=== PATIENT | female | born 1965 | race African-American/Black ===

== ENCOUNTER 2016-07-17 14:36 | Emergency (ER) | payer MEDICARE, OTHER ==
[~2016-07-17 14:36] MED LIST: ABILIFY PO; ADVIL200 M1; ALBUTEROL17 GM INH; BENADRYL25 MG PO; CALAN SR PO; EPIPEN0.3 MG/0.1; FLUTICASONE PRO15 G1; IMITREX PO; LAMICTAL PO; LINZESS PO; MIRABEGRON; NO MEDICATIONS; PANTOPRAZOLE SO40 MG PO; PREMARIN; RESTASIS OU; TRAZODONE PO; VALTREX PO; [UNRECOGNIZED DRUG - REMARK]
== END 2016-07-17 16:18 | disposition home or self-care (01) ==
LOC: CED 14:36
DX: M79.89 Other specified soft tissue disorders (principal); T38.0X5A Adverse effect of glucocorticoids and synthetic analogues, initial encounter; Z90.49 Acquired absence of other specified parts of digestive tract; Z90.710 Acquired absence of both cervix and uterus; F43.10 Post-traumatic stress disorder, unspecified; Z88.8 Allergy status to other drugs, medicaments and biological substances
CPT/HCPCS: 99282

== ENCOUNTER → 2016-10-20 | Outpatient (CLI) | payer MEDICARE, OTHER ==
--- NOTE | ~2016-10-20 | CR90 ---
[facility] A Service of [facility] RADIOLOGY TEXT RESULTS PATIENT: JOSEPH MCKEON LOCATION: [facility] : 61 UNIT #: [id number] AGE: [address]: BERTO VILLARREAL MD SEX: F ORDER DR: [id number] [facility] [address]. [place], [place] [address] [id number] O MR#: [id number] Acc #: [id number] NAME: JOSEPH MCKEON : 1965 SEX: F STUDY DATE/TIME: 10/20/2016 12:24 UNIT: [facility] ROOM: STUDY DESCRIPTION: CR Elbow 2 View Lt Attending Physician: Berto Villarreal M.D. Referring Physician: Berto Villarreal M.D. Ordering Physician: Berto Villarreal M.D. Primary Care Physician: Berto Villarreal M.D. MEDICAL IMAGING REPORT This report is preliminary unless electronic signature is present EXAM Left elbow 10/20/2016 HISTORY 50-year-old female with left elbow pain for 1 month. COMPARISON STUDIES None. FINDINGS 3 views of the left elbow demonstrate no acute fracture or dislocation. No joint effusion. Soft tissues are unremarkable. IMPRESSION Unremarkable left. Dictated by... Torey Galvez M.D. THIS IS AN ELECTRONICALLY VERIFIED REPORT Torey Galvez M.D. at 10/21/2016 1:51 PM ONI/yamilet TD: 10/20/2016 18:20 JOB #: [id number] MEDICAL IMAGING REPORT Page 1 of 1 COPY
== END | disposition home or self-care (01) ==
LOC: CRAD 12:02
DX: M25.522 Pain in left elbow (principal)
CPT/HCPCS: 73070

== ENCOUNTER → 2016-10-29 | Outpatient (CLI) | payer MEDICARE, OTHER ==
--- NOTE | ~2016-10-29 | CT57 ---
[facility] A Service [facility] RADIOLOGY TEXT RESULTS PATIENT: JOSEPH MCKEON LOCATION: [facility] : 61 UNIT #: [id number] AGE: [address]: Aurea Holguin SEX: F ORDER DR: [id number] [facility]. [place], [place] [address] [id number] O MR#: [id number] Acc #: [id number] NAME: JOSEPH MCKEON : 1965 SEX: F STUDY DATE/TIME: 10/29/2016 13:21 UNIT: [facility] ROOM: STUDY DESCRIPTION: CT Chest Wo Cont Attending Physician: Aurea Holguin A.P.R.N. Referring Physician: Aurea Holguin A.P.R.N. Ordering Physician: Aurea Holguin A.P.R.N. Primary Care Physician: Kristi Goldberg M.D. MEDICAL IMAGING REPORT This report is preliminary unless electronic signature is present EXAM CT chest INDICATIONS Cough. Bronchitis for 1 year. Reaction to the allergy shots. TECHNIQUE CT of the chest without contrast. Coronal and sagittal reconstructions were obtained. The CT exam was performed with one or more of the following radiation dose reduction techniques: automatic exposure control, adjustment of mA and/or kV according to patient size, and iterative reconstruction. COMPARISON Chest radiograph dated 01/26/2016. FINDINGS There is no suspicious pulmonary findings. No focal consolidation. Central airways are patent. No pathologically enlarged mediastinal or hilar lymph nodes. Thoracic aorta is normal in caliber. No pericardial or pleural effusion. No acute osseous abnormalities. IMPRESSION Negative CT scan chest Dictated by... Boris Vargas M.D. [facility] A [facility] RADIOLOGY TEXT RESULTS PATIENT: JOSEPH MCKEON LOCATION: [facility] : 61 UNIT #: [id number] AGE: [address]: Aurea Holguin SEX: F ORDER DR: THIS IS AN ELECTRONICALLY VERIFIED REPORT Boris Vargas M.D. at 11/01/2016 11:48 AM PENNY/eric TD: 11/01/2016 10:39 JOB #: [id number] MEDICAL IMAGING REPORT Page 1 of 1 COPY
== END | disposition home or self-care (01) ==
LOC: CCAT 12:24
DX: R93.8 Abnormal findings on diagnostic imaging of other specified body structures (principal); R05 Cough
CPT/HCPCS: 71250